=== PATIENT | female | born 1945 | race Caucasian/White ===

== ENCOUNTER → 2018-03-07 | Outpatient (CLI) | payer MEDICARE, OTHER ==
[~2018-03-07] MED LIST: ASPI81CH PO; ATOR20 PO; LEVSOD100 PO; LOSA50 PO; METO100ER PO; MULVIT PO; NAPR500 PO; Prilosec Otc20 MG PO; SERT50 PO; [UNRECOGNIZED DRUG - OTHER] PO
== END | disposition home or self-care (01) ==
LOC: LAB SHORT 15:14 → PLD 15:14
DX: D48.5 Neoplasm of uncertain behavior of skin (principal)
CPT/HCPCS: 88305

== ENCOUNTER → 2020-04-13 | Outpatient (CLI) | payer MEDICARE, OTHER | END | disposition home or self-care (01) | LOC: LAB SHORT 03-03 08:39 → PLD 08:39 → LAB SHORT 08:39 | DX: D22.5 Melanocytic nevi of trunk (principal) | CPT/HCPCS: 88305 ==

== ENCOUNTER → 2020-04-28 | Outpatient (CLI) | payer MEDICARE, OTHER | END | disposition home or self-care (01) | LOC: PLD 17:25 → LAB SHORT 17:25 | DX: D22.5 Melanocytic nevi of trunk (principal) | CPT/HCPCS: 88305 ==

== ENCOUNTER → 2020-05-05 | Outpatient (CLI) | payer MEDICARE, OTHER | END | disposition home or self-care (01) | LOC: LAB SHORT 14:28 → LAB 14:28 | DX: D22.5 Melanocytic nevi of trunk (principal) | CPT/HCPCS: 88305 ==

== ENCOUNTER → 2021-02-21 | Outpatient (CLI) | payer MEDICARE | END | disposition home or self-care (01) | LOC: LAB 11:28 → LAB SHORT 11:28 | DX: D22.39 Melanocytic nevi of other parts of face (principal) | CPT/HCPCS: 88305 ==

== ENCOUNTER → 2023-08-18 | Outpatient (CLI) | payer MEDICARE | END | disposition home or self-care (01) | LOC: LAB 10:40 → LAB SHORT 10:40 | DX: R82.79 Other abnormal findings on microbiological examination of urine (principal) | CPT/HCPCS: 87086 ==

== ENCOUNTER 2023-09-22 12:53 | Emergency (ER) | payer MEDICARE ==
[~2023-09-22] VITALS: Ht 157.5 cm; Wt 69.0 kg
[2023-09-22 13:37] LABS: BASOPHILS ABSOLUTE AUTO 0.06 K/mm3 (0.00-0.23); BASOPHILS PERCENT AUTO 1 % (0-2); EOSINOPHILS ABSOLUTE AUTO 0.04 K/mm3 (0.00-0.68); EOSINOPHILS PERCENT AUTO 0 % (0-6); Hemoglobin 13.9 g/dL (11.5-16.0); IMMATURE GRAN ABSOLUTE AUTO 0.06 K/mm3 (0.00-0.10); IMMATURE GRAN PERCENT AUTO 1 % (0-1); LYMPHOCYTES PERCENT AUTO 10 % (21-46); MONOCYTES ABSOLUTE AUTO 1.38 K/mm3 (0.16-1.47); MONOCYTES PERCENT AUTO 11 % (4-13); Mean Corpuscular HGB 29.4 pg (26.0-34.0); Mean Corpuscular HGB Conc 33.9 g/dL (31.5-36.5); Mean Corpuscular Volume 87 fL (80-100); Mean Platelet Volume 9.3 fL (9.1-12.4); NEUTROPHILS ABSOLUTE AUTO 9.64 K/mm3 (1.96-9.15); NEUTROPHILS PERCENT AUTO 77 % (41-73); Platelet Count 226 K/mm3 (150-400); RDW Coefficient Variation 13.7 % (11.7-14.2); RDW Standard Deviation 43.5 fL (35.1-46.3); Red Blood Cell Count 4.73 M/mm3 (3.80-5.20); White Blood Cell Count 12.48 K/mm3 (4.00-11.30)
[2023-09-22 14:07] LABS: Albumin, Blood 3.3 g/dL (3.4-5.0); Albumin/Globulin Ratio 0.8 (0.8-1.8); Bilirubin, Total 1.3 mg/dL (0.1-1.0); Bun/Creatinine Ratio 15.2 (12.0-20.0); Calcium, Blood 9.6 mg/dL (8.5-10.1); Creatinine, Blood 0.99 mg/dL (0.40-1.00); Globulin, Blood 4.4 g/dL (2.2-4.0); Potassium, Blood 3.1 mmol/L (3.5-5.5); Total Protein, Blood 7.7 g/dL (6.4-8.2)
[2023-09-22 16:00] VITALS: BP 143/81
[2023-09-22] MEDS ORDERED: Albuterol 2.5 MG/3 ML VIAL INH SCH (16:15)
[2023-09-22] MEDS ORDERED: Ketorolac Tromethamine 15mg Vial IV ONE (16:15)
[2023-09-22] MEDS ORDERED: Doxycycline Hyclate 100 MG TAB PO ONE (17:10)
[2023-09-22] MEDS ORDERED: Amoxicillin/Clavulanate K 875 MG Tab PO ONE (17:10)
[2023-09-22] MEDS ORDERED: AMOCLA875 PO (17:10)
[2023-09-22] MEDS ORDERED: DOXY100 PO (17:10)
== END 2023-09-22 17:35 | disposition home or self-care (01) ==
LOC: ER 12:53
PROVIDERS: Physician Assistant
DX: J18.9 Pneumonia, unspecified organism (principal); Z79.899 Other long term (current) drug therapy; Z79.82 Long term (current) use of aspirin
CPT/HCPCS: 71046; 80053; 83690; 85025; 94640; 94664; 96374; 99284-25; A9270; J1885